=== PATIENT | female | born 1960 | race Caucasian/White ===

== ENCOUNTER 2016-11-04 09:41 | Day surgery (SDC) | payer OTHER ==
--- NOTE | 2016-11-04 07:56 | HP ---
DATE OF SURGERY: 11/04/2016 HISTORY OF PRESENT ILLNESS: The patient is a 56 year-old with reflux on Dexilant and Carafate over the past year, worse at night at times. The patient has some reflux. The patient is in need of follow up upper endoscopy for further evaluation. More symptoms upper esophageal area but no dysphagia according to the patient. I feel she would benefit from upper endoscopy for persistent reflux. Last upper endoscopy was years per Dr. Sekou Murrell. PAST MEDICAL HISTORY: Includes some anxiety, depression and reflux. PAST SURGICAL HISTORY: Two sections, hysterectomy. She had breast reduction in the past. MEDICATIONS: Lexapro, oxycodone, Carafate, Dexilant, Claritin, Fosamax, vitamin D and Flexeril. ALLERGIES: NKDA. FAMILY HISTORY: Diabetes, stroke. SOCIAL HISTORY: No alcohol abuse. REVIEW OF SYSTEMS: Twelve systems reviewed per admission assessment. No chest pain or palpitations other systems negative or noncontributory as above and per preadmission questionnaire. PHYSICAL EXAMINATION: GENERAL: No acute distress. HEENT: Sclerae nonicteric. NECK: No JVD. CHEST: Equal excursion, nonlabored breathing. CVS: Regular rate and rhythm. ABDOMEN: Soft. No peritoneal signs. EXTREMITIES: No edema. NEURO: Alert, moving extremities symmetrically. No gross motor deficits noted. IMPRESSION: Persistent worsening reflux despite proton pump inhibitor. The patient would benefit from follow up upper endoscopy for further evaluation to rule out esophagitis, gastritis, ulcer disease or neoplasia but not limited to. She was shown the risk sheet and explained the procedure in detail but not limited to bleeding or infection, small risk of bowel injury or perforation possibly requiring open procedure, small risk of missed or nondiagnosis or incomplete exam possibly requiring other studies, also possibility of inability to diagnosis the etiology of her symptoms possibly requiring other studies or procedures. She understands and agrees to the planned procedure. If she has a very tight narrowed area might consideration dilatation with slight increased risk of perforation otherwise same risks as above as well as risk of anesthesia or sedation but not limited to. Will proceed with EGD possibly biopsy as an outpatient.
[~2016-11-04 09:41] MED LIST: DEMEROL 50 MG IJ ONE; Sodium Chloride 0.9% 1000 ML 1,000 ML IV SCH; VERSED 5 MG/5 ML IV ONE
[2016-11-04] MEDS ORDERED: Sodium Chloride 0.9% 1000 ML 1,000 ML ONE (09:49)
[2016-11-04 12:24] VITALS: O2SAT 99
[2016-11-04 12:28] VITALS: BP 107/67; PULSE 76
--- NOTE | 2016-11-04 13:05 | OP ---
SURGERY DATE: 11/04/16 SURGERY TIME: 1050 PREOPERATIVE DIAGNOSIS: 1. HISTORY OF WORSENING REFLUX DESPITE HISTORY OF PROTON PUMP INHIBITOR USE. POSTOPERATIVE DIAGNOSIS: 1. VERY SMALL, SLIGHT HIATAL HERNIA. 2. MINIMAL TO MILD GASTRITIS. PROCEDURE: 1. Esophagogastroduodenoscopy with cold biopsy small bowel to evaluate for celiac sprue and cold biopsy of antrum to evaluate for Helicobacter pylori. 2. Some random cold biopsies distal esophagus to evaluate for eosinophilic esophagitis or other etiology of her symptoms. SURGEON: Dr. Ruddy Tracy. ANESTHESIA: IV sedation. ESTIMATED BLOOD LOSS: Minimal. INDICATIONS: As noted above. Risks and benefits explained in detail, but not limited to. Consent was obtained. DESCRIPTION OF PROCEDURE AND FINDINGS: The patient was taken to the endoscopy room. She was incrementally sedated with IV Demerol and Versed. Bite block positioned. Posterior pharynx sprayed with benzocaine spray. Video gastroscope easily passed down the esophagus through the gastroesophageal junction. At about 35 cm through the patent pylorus to the junction of the 2nd and 3rd portion of the duodenum. On withdrawal of the scope, there were no signs of any ulcers or inflammation in the duodenum. Cold biopsy was taken to evaluate for celiac sprue given her symptoms. The scope pulled back in the stomach. She had some minimal to mild gastritis. Cold biopsy was taken to evaluate for ONEYDA-test for Helicobacter pylori. Otherwise, on retroflex, there was a very slight hiatal hernia. It was probably less than 0.5 cm larger than the scope, very small, slight hiatal hernia. The scope was straightened in the gastroesophageal junction. Z line was crisp. No signs of any obvious Etienne's or esophagitis, but given her symptom complaints, some random cold biopsies were taken in the distal esophagus to evaluate for eosinophilic esophagitis or other etiology. Good hemostasis noted. The scope was withdrawn. The patient tolerated the procedure well. There were no immediate complications. Findings discussed with the family in the waiting room when they showed up late.
== END 2016-11-04 12:25 | disposition home or self-care (01) ==
LOC: SDC 09:41
PROVIDERS: ATTEND Surgery
PROC: 0DB68ZX Excision of Stomach, Via Natural or Artificial Opening Endoscopic, Diagnostic (ICD-10-PCS; principal; 2016-11-04)
PROC: 0DB38ZX Excision of Lower Esophagus, Via Natural or Artificial Opening Endoscopic, Diagnostic (ICD-10-PCS; 2016-11-04)
DX: K44.9 Diaphragmatic hernia without obstruction or gangrene (principal); K29.70 Gastritis, unspecified, without bleeding; F41.8 Other specified anxiety disorders
CPT/HCPCS: 36415; 87081; 88305; J2175; J2250

== ENCOUNTER 2016-11-07 20:11 | Emergency (ER) | payer OTHER ==
[2016-11-07] MEDS ORDERED: Sodium Chloride 0.9% 1000 ML 1,000 ML IV STA (20:17)
[2016-11-07] MEDS ORDERED: Phenergan 25 MG INJ IV ONE ×2 (20:17→22:22)
[2016-11-07] MEDS ORDERED: Sodium Chloride 0.9% 1000 ML 1,000 ML ONE (20:18)
[2016-11-07] MEDS ORDERED: Phenergan 25 MG INJ ONE ×2 (20:18→22:24)
--- NOTE | 2016-11-07 20:20 | ERPHSYRPT ---
- History of Present Illness Time Seen by Provider: 11/07/16 20:15 Historian: patient Exam Limitations: no limitations Physician History: ONE HOUR AGO AT HOME PT STARTED WITH VOMITING X5 WITHOUT BLOOD AND BURNING STOMACH PAIN. PT STATES EARLIER TODAY PT ATE A SALAD AT HOME WITH RANCH DRESSING THAT MAY BE OUT OF DATE. PT ALSO STATES SHE HAS HAD AN ULCER SINCE SHE WAS 11 YEARS OLD. PT DENIES CHEST PAIN, SHORTNESS OF AIR, FEVER, DYSURIA. LAST BM WAS 2 DAYS AGO & WNL. Allergies/Adverse Reactions: No Known Drug Allergies Allergy (Verified 11/07/16 20:12) Home Medications: Carvedilol 3.125 mg [Coreg 3.125 MG] 3.125 mg PO DAILY 04/23/15 [History] Loratadine 10 mg [Claritin 10 mg] 10 mg PO DAILY 04/23/15 [History] Oxycodone HCl/Acetaminophen [Oxycodone-Acetaminophen 5-325] 1 each PO Q4-6HPRN PRN 04/23/15 [History] Escitalopram Oxalate [Lexapro] 20 mg PO DAILY 11/29/15 [History] Cyclobenzaprine HCl [Flexeril] 5 mg PO BID PRN PRN 08/20/16 [History] Cholecalciferol (Vitamin D3) [Vitamin D] 400 unit PO DAILY 10/24/16 [History] Dexlansoprazole [Dexilant] 30 mg PO DAILY 10/24/16 [History] Sucralfate 1 gm [Carafate 1 GM] 1 gm PO TIDWMEALS 10/24/16 [History] Hx Tetanus, Diphtheria Vaccination/Date Given: Yes Hx Influenza Vaccination/Date Given: No Hx Pneumococcal Vaccination/Date Given: No - Review of Systems Constitutional: No Fever Respiratory: No Dyspnea Cardiac: No Chest Pain Abdominal/Gastrointestinal: Abdominal Pain, Vomiting Genitourinary Symptoms: No Dysuria Neurological: No Headache All Other Systems: Reviewed and Negative - Past Medical History Pertinent Past Medical History: Yes Neurological History: No Pertinent History ENT History: No Pertinent History Cardiac History: Hypertension Respiratory History: No Pertinent History Endocrine Medical History: No Pertinent History Musculoskeletal History: Arthritis, Fibromyalgia GI Medical History: No Pertinent History History: No Pertinent History Psycho-Social History: No Pertinent History Female Reproductive Disorders: No Pertinent History - Past Surgical History Past Surgical History: Yes Neuro Surgical History: No Pertinent History Cardiac: No Pertinent History Respiratory: No Pertinent History Gastrointestinal: No Pertinent History Genitourinary: No Pertinent History Musculoskeletal: No Pertinent History Female Surgical History: Hysterectomy, Section, Tubal Ligation Other Surgical History: Breast reduction 2005. - Social History Smoking Status: Former smoker Exposure to second hand smoke: No Drug Use: none Patient Lives Alone: No - Female History Hx Now: No - Nursing Vital Signs Nursing Vital Signs: Initial Vital Signs Temperature 98.4 F Temperature Source Oral Pulse Rate 103 Respiratory Rate 16 Blood Pressure [Right Arm] 128/86 Pain Intensity 8 - Physical Exam General Appearance: alert Eye Exam: PERRL/EOMI Ears, Nose, Throat Exam: dry mucous membranes Neck Exam: normal inspection Respiratory Exam: lungs clear Cardiovascular Exam: normal heart sounds Gastrointestinal/Abdomen Exam: soft, other (B.S. MILDLY HYPERACTIVE AND NORMOTONIC.), No tenderness Back Exam: normal range of motion Extremity Exam: normal inspection, No pedal edema Neurologic Exam: alert, cooperative Skin Exam: warm, dry SpO2 Interpretation: normal SpO2: 99 Oxygen Delivery: Room Air - Course Nursing assessment & vital signs reviewed: Yes Ordered Tests: Active Orders 24 hr Category Date Time Status IV Insertion STAT Care 11/07/16 20:17 Active AMYLASE Stat Lab 11/07/16 20:25 Completed CBC W DIFF Stat Lab 11/07/16 20:25 Completed CMP Stat Lab 11/07/16 20:25 Completed CULTURE,URINE Stat Lab 11/07/16 21:30 Received LIPASE Stat Lab 11/07/16 20:25 Completed MAG [MAGNESIUM] Stat Lab 11/07/16 20:25 Completed UA W/ MICROSCOPIC Stat Lab 11/07/16 21:30 Completed Medication Summary Discontinued Medications Generic Name Dose Route Start Last Admin Trade Name Freq PRN Reason Stop Dose Admin Al Hydrox/Mg Hydrox/Simethicone Confirm 11/07/16 20:30 Maalox Es 30 Ml Unit Dose Administered 11/07/16 20:31 Dose 30 ml .ROUTE .STK-MED ONE Belladonna Alkaloids/Phenobarbital 60 ml 11/07/16 20:26 11/07/16 20:36 Gi Cocktail 60ml (Belladonn/Phenobarb/Lidoc* PO 11/07/16 20:27 60 ml STAT ONE Administration Belladonna Alkaloids/Phenobarbital Confirm 11/07/16 20:30 Donnatol Liquid Administered 11/07/16 20:31 Dose 64.8 mg .ROUTE .STK-MED ONE Sodium Chloride 1,000 mls @ 999 mls/hr 11/07/16 20:17 11/07/16 20:23 Sodium Chloride 0.9% 1000 Ml IV 11/07/16 21:17 999 mls/hr .Q1H1M STA Administration Sodium Chloride Confirm 11/07/16 20:18 Sodium Chloride 0.9% 1000 Ml Administered 11/07/16 20:19 Dose 1,000 mls @ ud .ROUTE .STK-MED ONE Lidocaine HCl Confirm 11/07/16 20:30 Xylocaine Hcl Viscous * Administered 11/07/16 20:31 Dose 20 ml .ROUTE .STK-MED ONE Promethazine HCl 12.5 mg 11/07/16 20:17 11/07/16 20:23 Phenergan 25 Mg Inj IV 11/07/16 20:18 12.5 mg STAT ONE Administration Promethazine HCl Confirm 11/07/16 20:18 Phenergan 25 Mg Inj Administered 11/07/16 20:19 Dose 25 mg .ROUTE .STK-MED ONE Lab/Rad Data: Laboratory Result Diagrams 11/07/16 20:25 11/07/16 20:25 Laboratory Results 11/07/16 11/07/16 11/07/16 Range/Units 21:30 20:25 20:25 WBC (4.0-10.5) K/mm3 RBC (4.1-5.4) M/mm3 Hgb (12.0-16.0) gm/dl Hct (35-47) % MCV (78-100) fl MCH (26-32) pg MCHC (32-36) g/dl RDW (11.5-14.0) % Plt Count (150-450) K/mm3 MPV (6-9.5) fl Gran % (36.0-66.0) % Lymphocytes % (24.0-44.0) % Monocytes % (0.0-12.0) % Eosinophils % (0.00-5.0) % Basophils % (0.0-0.4) % Basophils # (0-0.4) Sodium 143 (136-145) mEq/L Potassium 3.5 (3.5-5.1) mEq/L Chloride 104 (98-107) mEq/L Carbon Dioxide 21.6 (21-32) mEq/L Anion Gap 20.7 H (5-15) MEQ/L BUN 11 (9-20) mg/dL Creatinine 0.87 (0.55-1.30) mg/dl Estimated GFR > 60 ML/MIN Glucose 97 (70-110) MG/DL Calcium 10.1 (8.5-10.1) mg/dL Magnesium 1.9 (1.8-2.4) mg/dL Total Bilirubin 0.30 (0.2-1.0) mg/dL AST 21 (15-37) U/L ALT 22 (12-78) U/L Alkaline Phosphatase 71 (46-116) U/L Serum Total Protein 8.3 H (6.4-8.2) gm/dL Albumin 4.1 (3.4-5.0) g/dL Amylase 77 (25-115) U/L Lipase 144 (73-393) U/L Ur Collection Type CLEAN CATCH Urine Color YELLOW (YELLOW) Urine Appearance CLEAR (CLEAR) Urine pH 5.5 (5-6) Ur Specific [place] 1.020 (1.005-1.025) Urine Protein NEGATIVE (Negative) Urine Glucose (UA) NEGATIVE (NEGATIVE) mg/dL Urine Ketones MODERATE-40 (NEGATIVE) Urine Nitrite NEGATIVE (NEGATIVE) Urine Bilirubin NEGATIVE (NEGATIVE) Urine Urobilinogen 0.2 (0-1) mg/dL Urine WBC (Auto) TRACE (NEGATIVE) Urine RBC (Auto) MODERATE (0-5) Hernando/ul Urine Microscopic RBC 10-15 (0-2) /HPF Urine Microscopic WBC 0-2 (0-5) /HPF Ur Epithelial Cells FEW (FEW) /HPF Urine Bacteria RARE (NEGATIVE) /HPF Specimen Received 11/07/16:212911/07/16 Range/Units 20:25 WBC 10.1 (4.0-10.5) K/mm3 RBC 5.30 (4.1-5.4) M/mm3 Hgb 15.6 (12.0-16.0) gm/dl Hct 46.6 (35-47) % MCV 87.9 (78-100) fl MCH 29.4 (26-32) pg MCHC 33.5 (32-36) g/dl RDW 13.3 (11.5-14.0) % Plt Count 373 (150-450) K/mm3 MPV 9.0 (6-9.5) fl Gran % 66.0 (36.0-66.0) % Lymphocytes % 28.1 (24.0-44.0) % Monocytes % 5.3 (0.0-12.0) % Eosinophils % 0.4 (0.00-5.0) % Basophils % 0.2 (0.0-0.4) % Basophils # 0.02 (0-0.4) Sodium (136-145) mEq/L Potassium (3.5-5.1) mEq/L Chloride (98-107) mEq/L Carbon Dioxide (21-32) mEq/L Anion Gap (5-15) MEQ/L BUN (9-20) mg/dL Creatinine (0.55-1.30) mg/dl Estimated GFR ML/MIN Glucose (70-110) MG/DL Calcium (8.5-10.1) mg/dL Magnesium (1.8-2.4) mg/dL Total Bilirubin (0.2-1.0) mg/dL AST (15-37) U/L ALT (12-78) U/L Alkaline Phosphatase (46-116) U/L Serum Total Protein (6.4-8.2) gm/dL Albumin (3.4-5.0) g/dL Amylase (25-115) U/L Lipase (73-393) U/L Ur Collection Type Urine Color (YELLOW) Urine Appearance (CLEAR) Urine pH (5-6) Ur Specific [place] (1.005-1.025) Urine Protein (Negative) Urine Glucose (UA) (NEGATIVE) mg/dL Urine Ketones (NEGATIVE) Urine Nitrite (NEGATIVE) Urine Bilirubin (NEGATIVE) Urine Urobilinogen (0-1) mg/dL Urine WBC (Auto) (NEGATIVE) Urine RBC (Auto) (0-5) Hernando/ul Urine Microscopic RBC (0-2) /HPF Urine Microscopic WBC (0-5) /HPF Ur Epithelial Cells (FEW) /HPF Urine Bacteria (NEGATIVE) /HPF Specimen Received - Departure Time of Disposition: 22:20 Departure Disposition: Home Clinical Impression: VOMITING Condition: Fair Critical Care Time: No Instructions: Vomiting -- Adult Additional Instructions: FOLLOW UP WITH PRIVATE DOCTOR TOMORROW.
[2016-11-07] MEDS ORDERED: GI COCKTAIL 60ML (Belladonn/Phenobarb/Lidoc PO ONE (20:26)
[2016-11-07] MEDS ORDERED: XYLOCAINE HCl Viscous ONE (20:30)
[2016-11-07] MEDS ORDERED: Donnatol Liquid ONE (20:30)
[2016-11-07] MEDS ORDERED: MAALOX ES 30 ML UNIT DOSE ONE (20:30)
[2016-11-07 20:36] LABS: BASOPHIL % 0.2 % (0.0-0.4); Eosinophil % 0.4 % (0.00-5.0); Lymphocytes % 28.1 % (24.0-44.0); Mean Cell Volume 87.9 fl (78-100); Mean Corpuscular Hemoglobin 29.4 pg (26-32); Monocytes % 5.3 % (0.0-12.0); Platelet Count 373 K/mm3 (150-450); Red Cell Distribution Width 13.3 % (11.5-14.0); White Blood Count 10.1 K/mm3 (4.0-10.5)
[2016-11-07 20:58] LABS: ALBUMIN 4.1 g/dL (3.4-5.0); ALKALINE PHOSPHATASE 71 U/L (46-116); ANION GAP 20.7 MEQ/L (5-15); BLOOD UREA NITROGEN 11 mg/dL (9-20); CHLORIDE 104 mEq/L (98-107); Carbon Dioxide 21.6 mEq/L (21-32); Glucose 97 MG/DL (70-110); LIPASE 144 U/L (73-393); Potassium 3.5 mEq/L (3.5-5.1); SGOT/AST 21 U/L (15-37); SGPT/ALT 22 U/L (12-78); SODIUM 143 mEq/L (136-145); Total Protein 8.3 gm/dL (6.4-8.2)
[2016-11-07 21:55] LABS: Collection Type CLEAN CATCH
[2016-11-07 21:56] LABS: ADD URINE CULTURE? YES (NO); COMPLETE URINE MICROSCOPIC? YES; Ph 5.5 (5-6)
[2016-11-07 21:57] LABS: Bacteria RARE /HPF (NEGATIVE); Epithelial Cells FEW /HPF (FEW); WBC 0-2 /HPF (0-5)
[2016-11-07 22:20] VITALS: O2SAT 99
[2016-11-07 22:30] VITALS: PULSE 80
[2016-11-07 22:49] VITALS: BP 124/78
== END 2016-11-07 22:48 | disposition home or self-care (01) ==
LOC: ED 20:11
DX: R11.10 Vomiting, unspecified (principal); R10.9 Unspecified abdominal pain
CPT/HCPCS: 36000; 36415; 80053; 81000; 82150; 83690; 83735; 85025; 87086; 96360; 96374; 96376; 99284; J2550; A9270-GY

== ENCOUNTER 2017-03-03 09:20 | Day surgery (SDC) | payer OTHER ==
--- NOTE | 2017-03-01 15:24 | HP ---
DATE OF SURGERY: 03/03/2017 HISTORY OF PRESENT ILLNESS: The patient is a 56 year-old who had some reflux discomfort had upper endoscopy. However, she had persistent symptoms. She ended up having gallbladder work up. Ultrasound did not show any stones. She had a high ejection fraction in the 30% consistent with dyskinesia probable chronic cholecystitis. I feel she would benefit from cholecystectomy. PAST MEDICAL HISTORY: She had some reflux, anxiety and depression in the past. PAST SURGICAL HISTORY: She had two sections and hysterectomy. She had breast reduction in the past. MEDICATIONS: Fosamax, Claritin, Dexilant, Carafate, oxycodone, Lexapro, vitamin D and Flexeril. ALLERGIES: NKDA. FAMILY HISTORY: Diabetes, stroke. SOCIAL HISTORY: She quit smoking back in 1983. No alcohol abuse. REVIEW OF SYSTEMS: Twelve systems reviewed per admission assessment. No chest pain or palpitations other systems negative or noncontributory as above and per preadmission questionnaire. PHYSICAL EXAMINATION: GENERAL: No acute distress. HEENT: Sclerae nonicteric. NECK: No JVD. CHEST: Equal excursion, nonlabored breathing. CVS: Regular rate and rhythm. ABDOMEN: Soft. No peritoneal signs. EXTREMITIES: No significant edema. NEURO: Alert, moving extremities grossly symmetrically. No gross motor deficits noted. IMPRESSION: Abnormal HIDA scan with ejection fraction 30% with symptoms consistent with symptomatic biliary dyskinesia possible chronic cholecystitis. I feel the patient will benefit from cholecystectomy. Risks and benefits explained in detail including but not limited to bleeding or infection, risk of trocar injury or hernia, small risk of bowel, bladder or blood vessel injury, small risk of bile leak, bile duct injury, retained stone or sludge possibly requiring further procedure either open or ERCP, general risk of anesthesia, deep venous thrombosis, pulmonary embolism, pneumonia, perioperative risk of aches, pains, bloating, constipation and/or loose stools possibly chronic in nature, possibility that the procedure may not improve her symptoms that she may need further work up and/or testing, other studies or procedures. She understands and agrees to the planned procedure, will proceed with laparoscopic cholecystectomy with possible open as an outpatient.
[~2017-03-03 09:20] MED LIST changes: -DEMEROL 50 MG IJ ONE; +Lactated Ringers 1,000 ML IV ONE; +Lactated Ringers 1,000 ML IV SCH; +MEFOXIN 2 GM PREMIX** 2 GM/50 ML ML IV ONE; +Sensorcaine 0.25% 10 ML ONE; -Sodium Chloride 0.9% 1000 ML 1,000 ML IV SCH; -VERSED 5 MG/5 ML IV ONE
[2017-03-03] MEDS ORDERED: Decadron 4 MG INJ IV ONE (09:21)
[2017-03-03] MEDS ORDERED: APRESOLINE 20 MG/ML INJ IV ONE (09:21)
[2017-03-03] MEDS ORDERED: DILAUDID 2 MG INJECTION IV ONE (09:21)
[2017-03-03] MEDS ORDERED: TORAdol 30 mg Injection IV ONE (09:21)
[2017-03-03] MEDS ORDERED: BRIDION 200MG/2ML IV ONE (09:21)
[2017-03-03] MEDS ORDERED: Zofran 4 MG/2 ML VIAL IV ONE (09:21)
[2017-03-03] MEDS ORDERED: Quelicin Fliptop 200 MG/10 ML IV ONE (09:21)
[2017-03-03] MEDS ORDERED: Zemuron 100 MG/10 ML IV ONE (09:21)
[2017-03-03] MEDS ORDERED: DIPRIVAN 200 MG/20 ML IV ONE (09:21)
[2017-03-03] MEDS ORDERED: SUBLIMAZE 100 MCG/2 ML IV ONE (09:21)
[2017-03-03] MEDS ORDERED: SUBLIMAZE 100 MCG/2 ML ONE (12:22)
[2017-03-03] MEDS ORDERED: DILAUDID 2 MG INJECTION ONE (12:22)
[2017-03-03] MEDS ORDERED: Zofran 4 MG/2 ML VIAL ONE (12:28)
[2017-03-03] MEDS ORDERED: Lactated Ringers 1,000 ML IV ONE (12:32)
[2017-03-03 13:22] VITALS: PULSE 78; O2SAT 97
[2017-03-03 14:16] VITALS: BP 118/71
--- NOTE | 2017-03-04 07:45 | OP ---
SURGERY DATE/TIME: 03/03/2017 1120 PREOPERATIVE DIAGNOSIS: Biliary dyskinesia, chronic cholecystitis. POSTOPERATIVE DIAGNOSIS: Biliary dyskinesia, chronic cholecystitis. PROCEDURE: Laparoscopic cholecystectomy. SURGEON: Dr. Ruddy Tracy. ANESTHESIA: General. ESTIMATED BLOOD LOSS: Minimal. INDICATIONS: As noted above. Risks and benefits explained in detail but not limited to and consent was obtained. DESCRIPTION OF PROCEDURE AND FINDINGS: The patient was taken to the OR. General anesthesia was induced. Abdomen prepped and draped in the usual sterile fashion. After official time out and no disagreement with planned procedure, a transverse incision made at the supraumbilical area. Fascia grasped and pulled upward. Veress needle inserted and tested with saline. Pneumoperitoneum accomplished insufflating opening pressure of 0-15. A 5 mm bladeless port and camera were inserted without difficulty in the right upper quadrant followed by two - 11 mm ports placed in the supraumbilical area. There is no evidence of any intra-abdominal injury secondary to port placement. Additional 5 mm port placement in the right upper quadrant, 5 mm in the epigastric port under direct visualization with the camera. At this point the gallbladder is grasped. It had some mild chronic inflammatory reaction on it. It was retracted up over the edge of the liver and laterally away from Calot's triangle. Dissection carried posterior, lateral to anterior fashion. Slowly and carefully main cystic arterial branch isolated directly on the gallbladder wall. The cystic duct and infundibular junction slowly and carefully skeletonized until a critical view was obtained both anteriorly and posteriorly. Once this was accomplished cystic duct and cystic artery clipped x3 and divided in usual fashion. The gallbladder slowly and carefully dissected free from its dense almost concrete attachments to the liver bed staying directly on the gallbladder wall clipping an occasional oozing side branches off the cystic artery as necessary directly on the gallbladder wall. Just prior to releasing from final attachments to the anterior edge of the liver the liver bed re-inspected. Clips noted to be in place in cystic duct and cystic artery stumps. There were no signs of any active bleeding or bile leakage. It was felt that there was no benefit of drain placement at this point. The gallbladder was released from final attachments to the anterior edge of the liver. It was then pulled up and out the supraumbilical 10/11 port site and passed off with puncture closure device used to close the fascial defect at the 10/11 port site in the supraumbilical area under direct vision of the camera with #1 Vicryl. Pneumoperitoneum decompressed. The wound was irrigated out. Skin incision closed with 4-0 Vicryl. Steri-Strips and sterile dressing applied. 0.25% Marcaine local injected along the skin incision fascial defect. The patient tolerated the procedure well. There were no immediate complications. Findings discussed with the family out in the waiting area.
== END 2017-03-03 14:17 | disposition home or self-care (01) ==
LOC: SDC 09:20
PROVIDERS: ATTEND Surgery
PROC: 0FT44ZZ Resection of Gallbladder, Percutaneous Endoscopic Approach (ICD-10-PCS; principal; 2017-03-03)
DX: K81.1 Chronic cholecystitis (principal)
CPT/HCPCS: 00790; 36415; 88304; J0330; J0360; J0694; J1100; J1170; J1885; J2405; J2704; J3010

== ENCOUNTER 2018-07-22 10:37 | Day surgery (SDC) | payer MEDICARE ==
[2018-07-22] MEDS ORDERED: Ketamine HCl 50 MG/ML IV ONE (10:38)
[2018-07-22] MEDS ORDERED: Marcaine 0.5% SDV 10 ML IJ ONE (10:38)
[2018-07-22] MEDS ORDERED: Depo-Medrol 40 MG/ML IM ONE (10:38)
[2018-07-22] MEDS ORDERED: DIPRIVAN 200 MG/20 ML IV ONE (10:38)
--- NOTE | 2018-07-22 13:58 | XRAY ---
Indication: Right shoulder injection. Intraoperative fluoroscopy was provided for 6 seconds. Single digital spot image submitted for interpretation demonstrates needle tip projecting superomedial humeral head. Small amount of contrast injected for needle tip placement. Correlate with intraoperative findings/report.
[2018-07-22] MEDS ORDERED: Lactated Ringers 1,000 ML IV ONE (14:29)
--- NOTE | 2018-07-27 10:33 | XRAY ---
6 seconds fluoroscopy time in surgery for right shoulder injection.
== END 2018-07-22 12:47 | disposition home or self-care (01) ==
LOC: SDC-PAIN 10:37
PROVIDERS: ATTEND Psychiatry & Neurology Pain Medicine
DX: M19.011 Primary osteoarthritis, right shoulder (principal); I10 Essential (primary) hypertension; E78.5 Hyperlipidemia, unspecified; K21.9 Gastro-esophageal reflux disease without esophagitis; Z79.899 Other long term (current) drug therapy; M79.7 Fibromyalgia; E78.00 Pure hypercholesterolemia, unspecified
CPT/HCPCS: 20611; 73030; 77002; J1030; J2704; Q9966

== ENCOUNTER 2019-01-13 12:25 | Day surgery (SDC) | payer MEDICARE ==
[2019-01-13] MEDS ORDERED: Marcaine 0.5% SDV 10 ML IJ ONE (12:26)
[2019-01-13] MEDS ORDERED: Depo-Medrol 40 MG/ML IM ONE (12:26)
[2019-01-13] MEDS ORDERED: Ketamine HCl 50 MG/ML ONE (13:13)
[2019-01-13] MEDS ORDERED: DIPRIVAN 200 MG/20 ML IV ONE (13:13)
--- NOTE | 2019-01-13 14:35 | XRAY ---
Indication: Right shoulder injection. Intraoperative fluoroscopy was provided for 7 seconds. Single digital spot image submitted for interpretation demonstrates needle tip projecting over the superior right glenohumeral joint. Small amount of contrast injected for needle tip placement. Correlate with intraoperative findings/report.
[2019-01-13] MEDS ORDERED: Lactated Ringers 1,000 ML IV ONE (15:26)
--- NOTE | 2019-01-13 16:21 | XRAY ---
7 seconds fluoroscopy time in surgery for right intra-articular shoulder injection.
== END 2019-01-13 13:45 | disposition home or self-care (01) ==
LOC: SDC-PAIN 12:25
PROVIDERS: ATTEND Psychiatry & Neurology Pain Medicine
DX: M19.011 Primary osteoarthritis, right shoulder (principal); K21.9 Gastro-esophageal reflux disease without esophagitis; E78.00 Pure hypercholesterolemia, unspecified; I10 Essential (primary) hypertension; E78.5 Hyperlipidemia, unspecified; Z79.899 Other long term (current) drug therapy
CPT/HCPCS: 20610; 73030; 77002; J1030; J2704; Q9966

== ENCOUNTER 2019-11-17 13:22 | Day surgery (SDC) | payer MEDICARE ==
[2019-11-17] MEDS ORDERED: Marcaine 0.5% SDV 10 ML IM ONE (13:23)
[2019-11-17] MEDS ORDERED: Depo-Medrol 40 MG/ML IM ONE (13:23)
[2019-11-17] MEDS ORDERED: Xylocaine 1% Vial 30 ML PF IJ ONE (13:23)
--- NOTE | 2019-11-17 15:18 | XRAY ---
Indication: Right hip intra-articular injection. Intraoperative fluoroscopy was provided for 38 seconds. Single digital spot image submitted for interpretation demonstrates needle tip just lateral to the right femur head. Small amount of contrast injected for needle tip placement. Correlate with intraoperative findings/report.
--- NOTE | 2019-11-17 17:02 | XRAY ---
38 seconds of fluoroscopy was used in surgery for a right intra-articular hip injection.
== END 2019-11-17 15:10 | disposition home or self-care (01) ==
LOC: SDC-PAIN 13:22
PROVIDERS: ATTEND Psychiatry & Neurology Pain Medicine
DX: M16.11 Unilateral primary osteoarthritis, right hip (principal); I10 Essential (primary) hypertension; E78.5 Hyperlipidemia, unspecified; K21.9 Gastro-esophageal reflux disease without esophagitis; Z79.899 Other long term (current) drug therapy
CPT/HCPCS: 20610; 73501; 77002; J1030; J2001; Q9966

== ENCOUNTER 2020-02-09 12:13 | Day surgery (SDC) | payer MEDICARE ==
[~2020-02-09 12:13] MED LIST changes: +DIPRIVAN 200 MG/20 ML IV ONE; +Ketamine HCl 50 MG/ML ONE; -Lactated Ringers 1,000 ML IV ONE; -Lactated Ringers 1,000 ML IV SCH; -MEFOXIN 2 GM PREMIX** 2 GM/50 ML ML IV ONE; -Sensorcaine 0.25% 10 ML ONE
[2020-02-09] MEDS ORDERED: Xylocaine-Mpf 2% 5 Ml Vial IJ ONE (12:14)
[2020-02-09] MEDS ORDERED: Depo-Medrol 40 MG/ML IM ONE (12:14)
--- NOTE | 2020-02-09 14:41 | XRAY ---
Indication: Bilateral L4-S1 MBB. Intraoperative fluoroscopy was provided for 7 seconds. Single digital spot image submitted for interpretation demonstrates posterior needle tips projecting over the expected left and right L4-S1 nerve roots. Correlate with intraoperative findings/report.
--- NOTE | 2020-02-09 15:08 | XRAY ---
7 seconds fluoroscopy time in surgery for bilateral L4-S1 MBB.
[2020-02-09] MEDS ORDERED: Lactated Ringers 1,000 ML IV ONE (15:12)
== END 2020-02-09 14:05 | disposition home or self-care (01) ==
LOC: SDC-PAIN 12:13
PROVIDERS: ATTEND Psychiatry & Neurology Pain Medicine
DX: M47.816 Spondylosis without myelopathy or radiculopathy, lumbar region (principal); I10 Essential (primary) hypertension; E78.5 Hyperlipidemia, unspecified; K21.9 Gastro-esophageal reflux disease without esophagitis; Z79.899 Other long term (current) drug therapy
CPT/HCPCS: 64493; 64494; 72020; 77002; J1030; J2704

== ENCOUNTER 2020-12-20 10:01 | Day surgery (SDC) | payer MEDICARE ==
[2020-12-20] MEDS ORDERED: Depo-Medrol 40 MG/ML IM ONE (10:02)
[2020-12-20] MEDS ORDERED: BUPIVACAINE 0.5% VIAL IJ ONE (10:02)
[2020-12-20] MEDS ORDERED: DIPRIVAN 200 MG/20 ML IV ONE (11:24)
--- NOTE | 2020-12-20 12:42 | XRAY ---
Indication: Bilateral hip and left greater trochanter injections. Intraoperative fluoroscopy provided for 32 seconds. 3 digital spot image submitted for interpretation demonstrates needle tips projecting lateral to the left/right femur necks and lateral to the left greater trochanter. Small amount of contrast injected for all 3 needle tip placement. Correlate with intraoperative findings/report.
--- NOTE | 2020-12-20 13:21 | XRAY ---
32 seconds fluoroscopy time in surgery for bilateral intra-articular injections of both hips and injection of the greater trochanter of the left hip.
[2020-12-20] MEDS ORDERED: Lactated Ringers 1,000 ML IV ONE (15:54)
== END 2020-12-20 12:15 | disposition home or self-care (01) ==
LOC: SDC-PAIN 10:01
PROVIDERS: ATTEND Psychiatry & Neurology Pain Medicine
DX: M16.0 Bilateral primary osteoarthritis of hip (principal); M70.62 Trochanteric bursitis, left hip; Z79.899 Other long term (current) drug therapy
CPT/HCPCS: 20610; 73521; 77002; J1030; J2704; Q9966

== ENCOUNTER 2022-12-04 08:28 | Day surgery (SDC) | payer MEDICARE ==
[2022-12-04] MEDS ORDERED: Sodium Chloride 0.9(Preservative Free) 10 ML IJ ONE (08:29)
[2022-12-04] MEDS ORDERED: Depo-Medrol 40 MG/ML IM ONE (08:29)
[2022-12-04] MEDS ORDERED: DIPRIVAN 200 MG/20 ML IV ONE (10:16)
[2022-12-04] MEDS ORDERED: Lactated Ringers 1,000 ML IV ONE (11:11)
--- NOTE | 2022-12-04 11:48 | XRAY ---
Indication: Right L4-S1 transforaminal MIKY. Intraoperative fluoroscopy provided for 30 seconds. 4 digital spot image submitted for interpretation demonstrates posterior needle tips project over the expected right L4 and L5 nerve roots. Small amount of contrast injected for needle tip placement. Correlate with intraoperative findings/report.
--- NOTE | 2022-12-04 13:02 | XRAY ---
30 seconds of fluoroscopy was used in surgery for a right L4-S1 transforaminal MIKY.
== END 2022-12-04 10:48 | disposition home or self-care (01) ==
LOC: SDC-PAIN 08:28
PROVIDERS: ATTEND Psychiatry & Neurology Pain Medicine
DX: M54.16 Radiculopathy, lumbar region (principal); Z79.899 Other long term (current) drug therapy
CPT/HCPCS: 64483; 64484; 72100; 77003; J1030; J2704; Q9966

== ENCOUNTER 2023-05-07 14:24 | Emergency (ER) | payer MEDICARE ==
[2023-05-07 14:59] VITALS: TEMP 98.5
[2023-05-07] MEDS ORDERED: Zofran 4 MG/2 ML VIAL IV ONE (15:06)
[2023-05-07] MEDS ORDERED: Sodium Chloride 0.9% 1000 ML 1,000 ML IV STA (15:06)
--- NOTE | 2023-05-07 15:06 | ERPHSYRPT ---
- History of Present Illness Time Seen by Provider: 05/07/23 15:00 Source: patient Exam Limitations: no limitations Patient Subjective Stated Complaint: C/O cough, nausea (no vomiting), no appetite, tired/fatigued. States tested positive for Influenza A on 05/02/23. Triage Nursing Assessment: Patient ambulated back to ER. She is alert and oriented. No SOB. Cough is present; dry and non-productive. JACKSON WNL. Skin tone normal. Skin is dry. Physician History: This is a 62-year-old white female patient of Dr. Varghese who presents to the emergency department with complaints of weakness, persistent cough, decreased ap petite and nausea over the last several days. Patient was diagnosed with influenza A on 05/02/2023. At that time her COVID test was negative. Patient was not placed on Tamiflu. Patient was given a prescription for Percocet and was given an intramuscular steroid injection on 05/02/2023. Patient is unsure whether or not this was a long-acting steroid medication that was injected. Patient denies chest pain. Patient denies shortness of breath. Patient denies abdominal pain. Patient denies diarrhea. Patient has a history of hyperlipidemia, gastroesophageal reflux disease, fibromyalgia, ulcer disease, hypertension, depression and arthritis. Timing/Duration: day(s) (5) Cough Quality/Degree: mild, dry cough Possible Cause: no prior episodes Modifying Factors: Improves With: coughing Associated Symptoms: cough, muscle aches, No chest pain/soreness, No shortness of breath, No sore throat, No wheezing Allergies/Adverse Reactions: sulfamethoxazole [From Bactrim] Allergy (Verified 05/07/23 14:48) trimethoprim [From Bactrim] Allergy (Verified 05/07/23 14:48) Home Medications: Atorvastatin Calcium [Lipitor] 10 mg PO HS 02/25/17 [History] Trazodone HCl [Desyrel] 50 mg PO HS 02/25/17 [History] Oxycodone HCl/Acetaminophen [Percocet 5-325 mg Tablet] 1 each PO Q4-6HPRN PRN 04/10/17 [History] Dexlansoprazole [Dexilant] 1 cap PO DAILY 05/07/23 [History] Escitalopram Oxalate [Lexapro] 20 mg PO HS 05/07/23 [History] Fluticasone Propionate 1 spray INTRANASAL DAILY 05/07/23 [History] Promethazine HCl 25 mg [Phenergan 25 mg] 1 tab PO Q6-8HPRN PRN 05/07/23 [History] Hx Tetanus, Diphtheria Vaccination/Date Given: Yes Hx Influenza Vaccination/Date Given: No Hx Pneumococcal Vaccination/Date Given: No Immunizations Up to Date: Yes Travel Risk - International Travel Have you traveled outside of the country in past 3 weeks: No - Coronavirus Screening Are you exhibiting any of the following symptoms?: Yes Symptoms: Fever, Cough: New Onset, Headaches/Body Aches/Fatigue Close contact with a COVID-19 positive Pt in past 14-21 Days: No - Vaccine Status Have you recieved a Covid-19 vaccination: No - Review of Systems Constitutional: Weakness Eyes: No Symptoms Ears, Nose, & Throat: No Symptoms Respiratory: Cough, No Dyspnea Cardiac: No Symptoms, No Chest Pain Abdominal/Gastrointestinal: Nausea, Constipation, No Abdominal Pain, No Vomiti ng, No Diarrhea Genitourinary Symptoms: No Symptoms Musculoskeletal: No Symptoms Skin: No Symptoms Neurological: No Symptoms Psychological: No Symptoms Endocrine: No Symptoms Hematologic/Lymphatic: No Symptoms Immunological/Allergic: No Symptoms All Other Systems: Reviewed and Negative - Past Medical History Pertinent Past Medical History: Yes Neurological History: No Pertinent History ENT History: No Pertinent History Cardiac History: High Cholesterol, Hypertension Respiratory History: No Pertinent History Endocrine Medical History: No Pertinent History Musculoskeletal History: Arthritis, Fibromyalgia GI Medical History: Diverticulosis, GERD, Ulcer History: No Pertinent History Psycho-Social History: Depression Female Reproductive Disorders: No Pertinent History - Past Surgical History Past Surgical History: Yes Neuro Surgical History: No Pertinent History Cardiac: No Pertinent History Respiratory: No Pertinent History Gastrointestinal: No Pertinent History Genitourinary: No Pertinent History Musculoskeletal: No Pertinent History Female Surgical History: Hysterectomy, Section, Tubal Ligation Other Surgical History: Breast reduction 2005. - Social History Smoking Status: Former smoker Exposure to second hand smoke: No Drug Use: none Patient Lives Alone: No - Nursing Vital Signs Nursing Vital Signs: Initial Vital Signs Temperature 98.5 F 05/07/23 14:52 Pulse Rate 78 05/07/23 14:52 Respiratory Rate 18 05/07/23 14:52 Blood Pressure 125/81 05/07/23 14:52 O2 Sat by Pulse Oximetry 97 05/07/23 14:52 Pain Scale Pain Intensity 0 - Physical Exam General Appearance: no apparent distress, alert, anxiety Eye Exam: PERRL/EOMI, eyes nml inspection Ears, Nose, Throat Exam: normal ENT inspection, moist mucous membranes Neck Exam: normal inspection, non-tender, supple, full range of motion Respiratory Exam: normal breath sounds, lungs clear, airway intact, No chest tenderness, No respiratory distress Cardiovascular Exam: regular rate/rhythm, normal heart sounds, normal peripheral pulses Gastrointestinal/Abdomen Exam: soft, normal bowel sounds, No tenderness Pelvic Exam: not done Rectal Exam: not done Back Exam: normal inspection, normal range of motion, No CVA tenderness, No vertebral tenderness Extremity Exam: normal inspection, normal range of motion, pelvis stable Neurologic Exam: alert, oriented x 3, cooperative, 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, no rmal mood/affect, nml cerebellar function, nml station & gait, sensation nml Skin Exam: normal color, warm, dry Lymphatic Exam: No adenopathy SpO2 Interpretation: normal SpO2: 97 O2 Delivery: Room Air - Course Nursing assessment & vital signs reviewed: Yes EKG Interpreted by Me: RATE (65), Sinus Rhythm, LAFB, NORMAL INTERVALS, NORMAL QRS, Other (No acute ischemic changes on today's twelve-lead EKG.) Ordered Tests: Active Orders 24 hr Category Date Time Status EKG-ER Only STAT Care 05/07/23 15:06 Active IV Insertion STAT Care 05/07/23 15:06 Active Telemetry q4h Care 05/07/23 16:04 Active CHEST 1 VIEW (PORTABLE) Stat Exams 05/07/23 15:22 Completed BLOOD CULTURE Stat Lab 05/07/23 15:37 Received CBC W DIFF Stat Lab 05/07/23 15:27 Completed CMP Stat Lab 05/07/23 15:27 Completed MONO SCREEN Stat Lab 05/07/23 15:27 Completed TROPONIN Q4H Lab 05/07/23 15:27 Completed TROPONIN Q4H Lab 05/07/23 19:15 Ordered TROPONIN Q4H Lab 05/07/23 23:15 Ordered UA W/RFX UR CULTURE Stat Lab 05/07/23 17:20 Completed Medication Summary Generic Name Dose Route Start Last Admin Trade Name Freq PRN Reason Stop Dose Admin Potassium Chloride 20 meq in 100 mls @ 50 mls/hr 05/07/23 16:03 05/07/23 17:33 Potassium Chloride 20 Meq In Water 100ml IV 05/07/23 18:02 50 mls/hr STAT ONE Administration Discontinued Medications Generic Name Dose Route Start Last Admin Trade Name Marielos PRN Reason Stop Dose Admin Diphenhydramine HCl 50 mg 05/07/23 17:57 Diphenhydramine Hcl 50 Mg/Ml Vial IV 05/07/23 17:58 STAT ONE Sodium Chloride 1,000 mls @ 999 mls/hr 05/07/23 15:06 05/07/23 16:55 Sodium Chloride 0.9% 1000 Ml IV 05/07/23 16:06 Infused .Q1H1M STA Infusion Sodium Chloride Confirm 05/07/23 15:40 Sodium Chloride 0.9% 1000 Ml Administered 05/07/23 15:41 Dose 1,000 mls @ ud .ROUTE .STK-MED ONE Potassium Chloride Confirm 05/07/23 16:12 Potassium Chloride 20 Meq In Water 100ml Administered 05/07/23 16:13 Dose 100 mls @ ud IV .STK-MED ONE Sodium Chloride 500 mls @ 500 mls/hr 05/07/23 16:56 05/07/23 17:40 Sodium Chloride 0.9% 500 Ml IV 05/07/23 17:55 200 mls/hr .Q1H ONE Infusion Sodium Chloride Confirm 05/07/23 17:30 Sodium Chloride 0.9% 500 Ml Administered 05/07/23 17:31 Dose 500 mls @ ud IV .STK-MED ONE Ondansetron HCl 4 mg 05/07/23 15:06 05/07/23 15:55 Ondansetron Hcl 4 Mg/2 Ml Vial IV 05/07/23 15:07 4 mg STAT ONE Administration Ondansetron HCl Confirm 05/07/23 15:40 Ondansetron Hcl 4 Mg/2 Ml Vial Administered 05/07/23 15:41 Dose 4 mg .ROUTE .STK-MED ONE Potassium Chloride 40 meq 05/07/23 16:03 05/07/23 16:20 Potassium Chloride Tab 10 Meq Tab PO 05/07/23 16:04 40 meq STAT ONE Administration Potassium Chloride Confirm 05/07/23 16:11 Potassium Chloride Tab 10 Meq Tab Administered 05/07/23 16:12 Dose 40 meq PO .STK-MED ONE Prochlorperazine Edisylate 5 mg 05/07/23 17:28 05/07/23 17:31 Prochlorperazine Edisylate 10 Mg/2 Ml Vial IV 05/07/23 17:29 5 mg STAT ONE Administration Prochlorperazine Edisylate Confirm 05/07/23 17:30 Prochlorperazine Edisylate 10 Mg/2 Ml Vial Administered 05/07/23 17:31 Dose 10 mg .ROUTE .STK-MED ONE Lab/Rad Data: Laboratory Result Diagrams 05/07/23 15:27 05/07/23 15:27 Laboratory Results 05/07/23 05/07/23 05/07/23 Range/Units 17:20 15:30 15:27 WBC (4.0-10.5) x10^3/uL RBC (4.1-5.4) x10^6/uL Hgb (12.0-16.0) g/dL Hct (35-47) % MCV (78-100) fL MCH (26-32) pg MCHC (32-36) g/dL RDW (11.5-14.0) % Plt Count (150-450) x10^3/uL MPV (7.5-11.0) fL Gran % (36.0-66.0) % Immature Gran % (Auto) (0.00-0.4) % Nucleat RBC Rel Count (0.00-0.1) % Eos # (Auto) (0-0.5) x10^3/uL Immature Gran # (Auto) (0.00-0.03) x10^3u/L Absolute Lymphs (auto) (1.0-4.6) x10^3/uL Absolute Monos (auto) (0.0-1.3) x10^3/uL Absolute Nucleated RBC (0.00-0.01) x10^3u/L Lymphocytes % (24.0-44.0) % Monocytes % (0.0-12.0) % Eosinophils % (0.00-5.0) % Basophils % (0.0-0.4) % Absolute Granulocytes (1.4-6.9) x10^3/uL Basophils # (0-0.4) x10^3/uL Sodium (137-145) mmol/L Potassium (3.5-5.1) mmol/L Chloride (98-107) mmol/L Carbon Dioxide (22-30) mmol/L Anion Gap (5-15) MEQ/L BUN (7-17) mg/dL Creatinine (0.52-1.04) mg/dL Estimated GFR ML/MIN Glucose (74-106) mg/dL Calcium (8.4-10.2) mg/dL Total Bilirubin (0.2-1.3) mg/dL AST (14-36) U/L ALT (0-35) U/L Alkaline Phosphatase (38-126) U/L Troponin I (0.000-0.034) ng/mL Serum Total Protein (6.3-8.2) g/dL Albumin (3.5-5.0) g/dL Urine Color Yellow (Yellow) Urine Appearance Clear (Clear) Urine pH 7.0 (4.6-8.0) Ur Specific [place] <=1.005 (1.005-1.030) Urine Protein Negative (Negative) Urine Glucose (UA) Negative (Negative) mg/dL Urine Ketones Negative (Negative) Urine Blood Negative (Negative) Urine Nitrite Negative (Negative) Urine Bilirubin Negative (Negative) Urine Urobilinogen 0.2 (0.2) mg/dL Ur Leukocyte Esterase Trace A (Negative) U Hyaline Cast (Auto) NONE SEEN (0-2) /LPF Urine Microscopic RBC 0-2 (0-5) /HPF Urine Microscopic WBC 0-2 (0-5) /HPF Ur Epithelial Cells None Seen (None Seen) /HPF Urine Bacteria None Seen (None Seen) /HPF Urine Culture Reflexed NO (NO) Monoscreen NEGATIVE (NEGATIVE) Influenza Type A Ag POSITIVE (NEGATIVE) Influenza Type B Ag NEGATIVE (NEGATIVE) RSV (PCR) NEGATIVE (NEGATIVE) SARS-CoV-2 (PCR) NEGATIVE (NEGATIVE) 05/07/23 05/07/23 05/07/23 Range/Units 15:27 15:27 15:27 WBC 9.2 (4.0-10.5) x10^3/uL RBC 5.08 (4.1-5.4) x10^6/uL Hgb 15.3 (12.0-16.0) g/dL Hct 45.9 (35-47) % MCV 90.4 (78-100) fL MCH 30.1 (26-32) pg MCHC 33.3 (32-36) g/dL RDW 11.9 (11.5-14.0) % Plt Count 346 (150-450) x10^3/uL MPV 9.6 (7.5-11.0) fL Gran % 82.9 H (36.0-66.0) % Immature Gran % (Auto) 0.7 H (0.00-0.4) % Nucleat RBC Rel Count 0.0 (0.00-0.1) % Eos # (Auto) 0.03 (0-0.5) x10^3/uL Immature Gran # (Auto) 0.06 H (0.00-0.03) x10^3u/L Absolute Lymphs (auto) 0.90 L (1.0-4.6) x10^3/uL Absolute Monos (auto) 0.57 (0.0-1.3) x10^3/uL Absolute Nucleated RBC 0.00 (0.00-0.01) x10^3u/L Lymphocytes % 9.8 L (24.0-44.0) % Monocytes % 6.2 (0.0-12.0) % Eosinophils % 0.3 (0.00-5.0) % Basophils % 0.1 (0.0-0.4) % Absolute Granulocytes 7.66 H (1.4-6.9) x10^3/uL Basophils # 0.01 (0-0.4) x10^3/uL Sodium 140 (137-145) mmol/L Potassium 2.7 L* (3.5-5.1) mmol/L Chloride 103 (98-107) mmol/L Carbon Dioxide 25 (22-30) mmol/L Anion Gap 13.9 (5-15) MEQ/L BUN 20 H (7-17) mg/dL Creatinine 0.61 (0.52-1.04) mg/dL Estimated GFR 100.4 ML/MIN Glucose 144 H (74-106) mg/dL Calcium 9.7 (8.4-10.2) mg/dL Total Bilirubin 0.90 (0.2-1.3) mg/dL AST 19 (14-36) U/L ALT 15 (0-35) U/L Alkaline Phosphatase 68 (38-126) U/L Troponin I < 0.012 (0.000-0.034) ng/mL Serum Total Protein 7.6 (6.3-8.2) g/dL Albumin 4.4 (3.5-5.0) g/dL Urine Color (Yellow) Urine Appearance (Clear) Urine pH (4.6-8.0) Ur Specific [place] (1.005-1.030) Urine Protein (Negative) Urine Glucose (UA) (Negative) mg/dL Urine Ketones (Negative) Urine Blood (Negative) Urine Nitrite (Negative) Urine Bilirubin (Negative) Urine Urobilinogen (0.2) mg/dL Ur Leukocyte Esterase (Negative) U Hyaline Cast (Auto) (0-2) /LPF Urine Microscopic RBC (0-5) /HPF Urine Microscopic WBC (0-5) /HPF Ur Epithelial Cells (None Seen) /HPF Urine Bacteria (None Seen) /HPF Urine Culture Reflexed (NO) Monoscreen (NEGATIVE) Influenza Type A Ag (NEGATIVE) Influenza Type B Ag (NEGATIVE) RSV (PCR) (NEGATIVE) SARS-CoV-2 (PCR) (NEGATIVE) - Progress Progress: re-examined Air Movement: good Progress Note: 05/07/23 15:28 This patient's medical issue is 1 of moderate complexity. Level complex in the workup performed is based on review the patient's past medical history, review the patient's medication list, review the patient's drug allergy list, history of present illness and physical findings on examination. Workup in this patient includes placement of intravenous line, infusion of 1 L normal saline solution, infusion of Zofran 4 mg intravenously, CBC, CMP, urinalysis, viral swabs and monoscreen as well as troponin level and twelve-lead EKG. We will also order a chest x-ray. 05/07/23 16:48 I reviewed and interpreted the patient's laboratory data results. Patient does have a potassium level of 2.7 and we will replace potassium with both oral and IV potassium chloride. Chest x-ray was interpreted by the radiologist and I reviewed the impression. Impression nonacute chest x-ray with chronic features. Blood Culture(s) Obtained: Yes Counseled pt/family regarding: lab results, diagnosis, need for follow-up, rad results Medical Desision Making - Diagnostic Testing Diagnostic test were ordered, analyzed, and reviewed by me: Yes Radiological Interpretation: Reviewed by me, Teleradiologist Report - Risk of complications The pt has a mod risk of morbidity or mortality based on: Need for prescription drug management - Departure Departure Disposition: Home Clinical Impression: Hypokalemia, Influenza A H1N1 infection Condition: Stable Critical Care Time: No Referrals: ERICK VARGHESE [Primary Care Provider] - Follow up/PCP as directed Additional Instructions: Drink plenty of clear liquids. Take your medications as prescribed. Follow-up at the [facility] lab on the morning of 05/09/2023 to repeat blood levels to check your potassium level. Call your primary care doctor's office later that morning to obtain your results. Prescriptions: Potassium Chloride Tab* [Klor Con] 10 meq PO BID #4 tab
[2023-05-07] MEDS ORDERED: Sodium Chloride 0.9% 1000 ML 1,000 ML ONE (15:40)
[2023-05-07] MEDS ORDERED: Zofran 4 MG/2 ML VIAL ONE (15:40)
[2023-05-07 15:43] LABS: Absolute Neutrophil Ct (ANC) 7.66 x10^3/uL (1.4-6.9); BASOPHIL % 0.1 % (0.0-0.4); Basophil (Absolute #) 0.01 x10^3/uL (0-0.4); Eosinophil % 0.3 % (0.00-5.0); Eosinophil (Absolute #) 0.03 x10^3/uL (0-0.5); Hematocrit 45.9 % (35-47); Hemoglobin 15.3 g/dL (12.0-16.0); IMMATURE GRAN # 0.06 x10^3u/L (0.00-0.03); IMMATURE GRAN % 0.7 % (0.00-0.4); Lymphocytes % 9.8 % (24.0-44.0); Mean Cell Volume 90.4 fL (78-100); Mean Corpuscular Hemoglobin 30.1 pg (26-32); Mean Corpuscular Hgb Concent. 33.3 g/dL (32-36); Mean Platelet Volume 9.6 fL (7.5-11.0); Monocyte (Absolute #) 0.57 x10^3/uL (0.0-1.3); Monocytes % 6.2 % (0.0-12.0); Neutrophil % 82.9 % (36.0-66.0); Platelet Count 346 x10^3/uL (150-450); Red Blood Count 5.08 x10^6/uL (4.1-5.4); Red Cell Distribution Width 11.9 % (11.5-14.0); White Blood Count 9.2 x10^3/uL (4.0-10.5)
[2023-05-07 15:59] LABS: ALBUMIN 4.4 g/dL (3.5-5.0); ANION GAP 13.9 MEQ/L (5-15); BILIRUBIN,TOTAL 0.9 mg/dL (0.2-1.3); Calcium 9.7 mg/dL (8.4-10.2); Creatinine 1 0.61 mg/dL (0.52-1.04); EST GLOMERULAR FILTRATION RATE 100.4 ML/MIN; Total Protein 7.6 g/dL (6.3-8.2)
[2023-05-07 16:03] LABS: Potassium 2.7 mmol/L (3.5-5.1)
[2023-05-07] MEDS ORDERED: Klor Con PO ONE ×2 (16:03→16:11)
[2023-05-07] MEDS ORDERED: POTASSIUM CHLORIDE 20 mEq IN WATER 100ML 20 MEQ/100 ML BAG IV ONE (16:03)
[2023-05-07] MEDS ORDERED: POTASSIUM CHLORIDE 20 mEq IN WATER 100ML 100 ML IV ONE (16:12)
[2023-05-07 16:20] LABS: INFLUENZA B NEGATIVE (NEGATIVE); RESPIRATORY SYNCTIAL VIRUS NEGATIVE (NEGATIVE); SARS-CoV-2 Xpert Express NEGATIVE (NEGATIVE)
[2023-05-07 16:23] LABS: INFLUENZA A POSITIVE (NEGATIVE)
--- NOTE | 2023-05-07 16:42 | XRAY ---
Indication: Cough. Positive influenza A. Comparison: July 16, 2011 Portable chest again remains clear with incidental right upper lobe calcified granuloma. Heart not enlarged with tortuous descending aorta. Bony thorax intact with mild osteopenia and degenerative changes. Impression: Continued nonacute chest with chronic features.
[2023-05-07] MEDS ORDERED: Sodium Chloride 0.9% 500 ML 500 ML IV ONE ×2 (16:56→17:30)
[2023-05-07] MEDS ORDERED: Compazine 10 MG/2 ML IV ONE (17:28)
[2023-05-07] MEDS ORDERED: Compazine 10 MG/2 ML ONE (17:30)
[2023-05-07 17:35] LABS: Appearance Clear (Clear); Bacteria None Seen /HPF (None Seen); Bilirubin Negative (Negative); Blood Negative (Negative); Epithelial Cells None Seen /HPF (None Seen); Glucose, Urine Negative (Negative); Hyaline Casts NONE SEEN /LPF (0-2); Ketones Negative (Negative); Leukocyte Esterase Trace (Negative); Nitrite Negative (Negative); Protein,Urine Dip Negative (Negative); RBC 0-2 /HPF (0-5); Specific Gravity <=1.005 (1.005-1.030); Urobilinogen 0.2 mg/dL (0.2); WBC 0-2 /HPF (0-5)
[2023-05-07 17:49] LABS: ADD URINE CULTURE? NO (NO)
[2023-05-07] MEDS ORDERED: BENADRYL 50 MG/ML IV ONE (17:57)
[2023-05-07] MEDS ORDERED: BENADRYL 50 MG/ML ONE (18:14)
[2023-05-07 19:13] VITALS: BP 112/69; PULSE 66; RESP 15; O2SAT 98
== END 2023-05-07 19:50 | disposition home or self-care (01) ==
LOC: ED 14:24
DX: J10.1 Influenza due to other identified influenza virus with other respiratory manifestations (principal); E87.6 Hypokalemia; R53.1 Weakness; R05.3 Chronic cough; R11.0 Nausea; E78.5 Hyperlipidemia, unspecified; I10 Essential (primary) hypertension; Z79.899 Other long term (current) drug therapy; Z28.310 Unvaccinated for COVID-19; Z20.828 Contact with and (suspected) exposure to other viral communicable diseases
CPT/HCPCS: 0241U; 36000; 36415; 71045; 80053; 81001; 84484; 85025; 86308; 87040; 93005; 96360; 96365; 96374; 96375; 99284; J1200; J2405; J3480; A9270-GY

== ENCOUNTER 2023-06-04 13:47 | Day surgery (SDC) | payer MEDICARE ==
[2023-06-04] MEDS ORDERED: BUPIVACAINE 0.5% VIAL IJ ONE (13:48)
[2023-06-04] MEDS ORDERED: Decadron 4 MG INJ IV ONE (13:48)
[2023-06-04] MEDS ORDERED: Sodium Chloride 0.9(Preservative Free) 10 ML IJ ONE (13:48)
[2023-06-04] MEDS ORDERED: Depo-Medrol 40 MG/ML IM ONE (13:48)
[2023-06-04] MEDS ORDERED: DIPRIVAN 200 MG/20 ML IV ONE (14:58)
[2023-06-04] MEDS ORDERED: MORPHINE SULFATE 2 MG INJ ONE ×2 (15:18→15:32)
[2023-06-04] MEDS ORDERED: Lactated Ringers 1,000 ML IV ONE (16:38)
--- NOTE | 2023-06-04 16:52 | XRAY ---
Indication: Right L4-S1 transforaminal MIKY. Intraoperative fluoroscopy provided for 22 seconds. 4 digital spot image submitted for interpretation demonstrates posterior needle tips projecting over the expected right L4 and L5 nerve roots. Small amount of contrast injected for needle tip placement. Correlate with intraoperative findings/report.
--- NOTE | 2023-06-04 16:54 | XRAY ---
Indication: Right greater trochanter bursa injection. Intraoperative fluoroscopy provided for 8 seconds. Single digital spot image obtained prone submitted for interpretation demonstrates needle tip projecting lateral to right greater trochanter. Small amount of contrast injected for needle tip placement. Correlate with intraoperative findings/report.
--- NOTE | 2023-06-04 16:57 | XRAY ---
22 seconds of fluoroscopy was used in surgery for a right L4-S1 transforaminal MIKY.
--- NOTE | 2023-06-04 16:57 | XRAY ---
8 seconds of fluoroscopy was used in surgery for a right greater trochanteric bursa injection.
== END 2023-06-04 15:56 | disposition home or self-care (01) ==
LOC: SDC-PAIN 13:47
PROVIDERS: ATTEND Psychiatry & Neurology Pain Medicine
DX: M54.16 Radiculopathy, lumbar region (principal); M70.61 Trochanteric bursitis, right hip
CPT/HCPCS: 20610; 64483; 64484; 72100; 73501; 77002; 77003; J1030; J1100; J2270; J2704; Q9966

== ENCOUNTER 2023-07-09 12:09 | Day surgery (SDC) | payer MEDICARE ==
[2023-07-09] MEDS ORDERED: Decadron 4 MG INJ IV ONE (12:10)
[2023-07-09] MEDS ORDERED: XYLOCAINE-MPF 1% 5ML SDV IJ ONE (12:10)
[2023-07-09] MEDS ORDERED: DIPRIVAN 200 MG/20 ML IV ONE (14:28)
[2023-07-09] MEDS ORDERED: Lactated Ringers 1,000 ML IV ONE (14:41)
--- NOTE | 2023-07-09 17:07 | XRAY ---
Indication: Right piriformis injection. Intraoperative fluoroscopy provided for 9 seconds. Single digital spot image submitted for interpretation demonstrates posterior needle tip projecting over right piriformis. Small amount of contrast injected for needle tip placement. Correlate with intraoperative findings/report.
--- NOTE | 2023-07-09 17:41 | XRAY ---
9 seconds of fluoroscopy was used in surgery for a right piriformis injection.
== END 2023-07-09 15:00 | disposition home or self-care (01) ==
LOC: SDC-PAIN 12:09
PROVIDERS: ATTEND Psychiatry & Neurology Pain Medicine
DX: M79.18 Myalgia, other site (principal)
CPT/HCPCS: 20552; 72170; 77002; J1100; J2704; Q9966

== ENCOUNTER 2024-09-16 12:45 | Day surgery (SDC) | payer MEDICARE ==
[2024-09-16] MEDS ORDERED: Sodium Chloride 0.9(Preservative Free) 10 ML IJ ONE (12:46)
[2024-09-16] MEDS ORDERED: dexAMETHasone sodium phosphate IJ ONE (12:46)
[2024-09-16] MEDS ORDERED: propofoL IV ONE (14:17)
--- NOTE | 2024-09-16 19:27 | XRAY ---
23 seconds of fluoroscopy was used in surgery for a right L4-S1 transforaminal MIKY.
--- NOTE | 2024-09-16 19:39 | XRAY ---
Indication: Right L4-S1 transforaminal MIKY. Intraoperative fluoroscopy provided for 23 seconds. 4 digital spot image submitted for interpretation demonstrates posterior needle tips projecting over expected right L4 and L5 nerve roots. Small amount of contrast injected for needle tip placement. Correlate with intraoperative findings/report.
== END 2024-09-16 14:47 | disposition home or self-care (01) ==
LOC: SDC-PAIN 12:45
PROVIDERS: ATTEND Psychiatry & Neurology Pain Medicine
DX: M54.16 Radiculopathy, lumbar region (principal)
CPT/HCPCS: 64483; 64484; 72100; J1100; J2704; Q9966